=== PATIENT | male | born 1960 | race Caucasian/White ===

== ENCOUNTER 2020-04-28 13:49 | Emergency (ER) | payer BC ==
[~2020-04-28] VITALS: Ht 180.3 cm; Wt 85.5 kg
[2020-04-28 14:37] LABS: BASO # 0.2 x10^3/uL (0.0-0.2); BASO % 1 % (0-3); EOS # 0.2 x10^3/uL (0.0-0.7); EOS % 1 % (0-3); HEMATOCRIT 45.9 % (39.0-53.0); HEMOGLOBIN 15.3 g/dL (13.0-17.5); LYMPH # 2.2 x10^3/uL (1.0-4.8); LYMPH % 12 % (24-48); MEAN CORPUSCULAR HEMOGLOBIN 30 pg (25-35); MEAN CORPUSCULAR HGB CONC 33 g/dL (31-37); MEAN CORPUSCULAR VOLUME 89 fL (79-100); MONO # 1.1 x10^3/uL (0.0-1.1); MONO % 7 % (0-9); NEUT # 13.7 x10^3/uL (1.8-7.7); NEUT % 79 % (31-73); PLATELET COUNT 397 x10^3/uL (140-400); RED BLOOD COUNT 5.14 x10^6/uL (4.30-5.70); WHITE BLOOD COUNT 17.4 x10^3/uL (4.0-11.0)
[2020-04-28 14:46] LABS: CREATININE 1.6 mg/dL (0.7-1.3); POTASSIUM 4.5 mmol/L (3.5-5.1)
[2020-04-28] MEDS: TAMSULOSIN 0.4 MG CAP.ER.24H. PO ONE (14:47)
[2020-04-28] MEDS: ONDANSETRON PF 4 MG/2 ML VIAL. IVP ONE (14:47)
[2020-04-28] MEDS: MORPHINE SULFATE 10 MG/ML VIAL. IV ONE (14:47)
[2020-04-28] MEDS: IV NORMAL SALINE 1000ML BAG 1,000 ML IV ONE (14:47)
[2020-04-28 14:57] LABS: ALBUMIN 2.9 g/dL (3.4-5.0); ALBUMIN/GLOBULIN RATIO 0.5 (1.0-1.7); TOTAL BILIRUBIN 0.6 mg/dL (0.2-1.0); TOTAL PROTEIN 8.6 g/dL (6.4-8.2)
[2020-04-28 14:57] LABS: BILIRUBIN,URINE NEGATIVE (NEG); CLARITY,URINE TURBID; COLOR,URINE YELLOW; NITRITE,URINE POSITIVE (NEG); PROTEIN,URINE >=300 mg/dL (NEG-TRACE); UROBILINOGEN,URINE 0.2 mg/dL (0.2 mg/dL)
[2020-04-28 14:59] LABS: % BASOS 2 % (0-3); % LYMPHS 20 % (24-48); % MONOS 6 % (0-10); % SEGS 72 % (35-66); PLT ESTIMATE ADEQUATE (ADEQUATE)
[2020-04-28 15:02] LABS: BACTERIA,URINE MANY /HPF (0-FEW); WBC,URINE >40 /HPF (0-4)
[2020-04-28 15:03] LABS: BARBITURATES NEG (NEG); BENZODIAZEPINES NEG (NEG); CANNABINOIDS NEG (NEG); COCAINE NEG (NEG); METHADONE NEG (NEG); OPIATES NEG (NEG); PHENCYCLIDINE NEG (NEG)
[2020-04-28 15:06] LABS: AMPHETAMINE/METHAMPHETAMINE POS (NEG)
[2020-04-28] MEDS: cefTRIAXone IV Push 1 GM VIAL. IVP ONE (15:44)
--- NOTE | 2020-04-28 15:53 | RAD ---
EXAM: CT Abdomen and Pelvis without IV contrast INDICATION: Reason: right flank pain hx of kidney stones / Spl. Instructions: / History: TECHNIQUE: Multi-detector row CT images were acquired from the lung bases through the abdomen and pel vis without the use of IV contrast. Sagittal and coronal images were acquired from the transaxial cuong a. All CT scans performed at this facility utilize dose optimization techniques as appropriate to the exam, including the following: Automated exposure control and adjustment of the mA and/or KV accordi ng to patient size (this includes techniques or standardized protocols for targeted exams where dose is indication/reason for exam). ORAL CONTRAST: None COMPARISON: Noncontrast abdomen pelvis CT of 11/04/2018 FINDINGS: The absence of IV contrast limits evaluation of soft tissue pathology. LOWER CHEST: Mild bibasilar atelectasis. LIVER: Unremarkable BILIARY SYSTEM: Mildly distended gallbladder with layering density suggestive of sludge or tiny galls tones. Bile ducts are not dilated. PANCREAS: Unremarkable SPLEEN: Unremarkable ADRENALS: Unremarkable KIDNEYS & URETERS: The left kidney shows interval resolution of hydronephrosis and hydroureter with interval passage of the distal left ureteral stone. The right kidney however shows slight interval increase in perirenal soft tissue stranding and edema of the right renal sinus fat. No definite right hydronephrosis is identified. Right nephrolithiasis i s noted with the largest stone measuring 5 mm at the inferior pole. A second 2 mm stone in the midpol e is unchanged. Previously evident additional stones at the superior pole right kidney have since pas sed. No ureteral stones are identified. BLADDER: Gas in the urinary bladder lumen remains present and there is mild diffuse wall thickening in the und istended urinary bladder that is nonspecific but could reflect cystitis in the appropriate clinical c ontext. Mural calcifications along the dorsal aspect of the urinary bladder remain present. REPRODUCTIVE ORGANS: Unremarkable GASTROINTESTINAL: Bowel shows no evidence of obstruction or acute inflammation. There are extensive c olonic diverticuli in the left-sided colon without CT findings suspicious for acute diverticulitis. T he appendix is normal. MESENTERY/PERITONEUM/RETROPERITONEUM: Unremarkable VASCULAR: Unremarkable LYMPH NODES: No adenopathy OSSEOUS & SOFT TISSUES: Bones are demineralized and show surgical changes from previous posterior de compression in the lower lumbar spine. There is suggestion of moderate central canal stenosis at L3-L 4, just above posterior surgical hardware fusion. S1 is a transitional vertebra that is is partially lumbarized on the right. IMPRESSION: CT findings suggesting possible acute cystitis with gas in the urinary bladder lumen and slightly gre ater perirenal soft tissue stranding on the right compared with the previous examination. Findings of obstructive uropathy in the left urinary tract have since resolved. Cannot exclude pyelonephritis. C orrelate clinically. Electronically signed by: Tanisha Snyder MD (04/28/2020 3:51 PM) [id number]
--- NOTE | 2020-04-28 17:29 | PHYS DOC ---
Past Medical History Past Medical History: Diabetes-Type II, Hypertension, Kidney Stone Past Surgical History: No Surgical History Smoking Status: Current Every Day Smoker Alcohol Use: Occasionally Drug Use: None General Adult EDM: Chief Complaint: ABDOMINAL PAIN HPI: HPI: Patient is a 60 year old male with history of hypertension, diabetes type 2, kidney infections, kidney stones, who presents to the ED today complaining of mild to moderate intermittent right flank pain, symptoms have been going on for 3 days. Patient denies any nausea, vomiting, fever. Denies anything specifically exacerbating or relieving his symptoms. Denies any hematuria. Review of Systems: Review of Systems: Constitutional: Denies fever or chills. [] Eyes: Denies change in visual acuity. [] HENT: Denies nasal congestion or sore throat. [] Respiratory: Denies cough or shortness of breath. [] Cardiovascular: Denies chest pain or edema. [] GI: Denies abdominal pain, nausea, vomiting, bloody stools or diarrhea. [] : Reports right flank pain, dysuria Musculoskeletal: Denies back pain or joint pain. [] Integument: Denies rash. [] Neurologic: Denies headache, focal weakness or sensory changes. [] Psychiatric: Denies depression or anxiety. [] Heart Score: Risk Factors: Risk Factors: DM, Current or recent (<one month) smoker, HTN, HLP, family history of CAD, obesity. Risk Scores: Score 0 - 3: 2.5% MACE over next 6 weeks - Discharge Home Score 4 - 6: 20.3% MACE over next 6 weeks - Admit for Clinical Observation Score 7 - 10: 72.7% MACE over next 6 weeks - Early Invasive Strategies Current Medications: Current Medications Medications (Trade) Dose Ordered Sig/Jena Start Time Stop Time Status Last Admin Dose Admin Ceftriaxone Sodium (Rocephin) 1 gm 1X ONCE 04/28/20 15:30 04/28/20 15:31 DC 04/28/20 15:44 1 GM Morphine Sulfate (Morphine Sulfate) 5 mg 1X ONCE 04/28/20 14:30 04/28/20 14:31 DC 04/28/20 14:47 5 MG Ondansetron HCl (Zofran) 4 mg 1X ONCE 04/28/20 14:30 04/28/20 14:31 DC 04/28/20 14:47 4 MG Sodium Chloride 1,000 ml @ 1,000 mls/hr 1X ONCE 04/28/20 14:30 04/28/20 15:29 DC 04/28/20 14:47 1,000 MLS/HR Tamsulosin HCl (Flomax) 0.4 mg 1X ONCE 04/28/20 14:30 04/28/20 14:31 DC 04/28/20 14:47 0.4 MG Allergies: Allergies: Allergies Coded Allergies Type Severity Reaction Last Updated Verified No Known Drug Allergies 11/04/18 No Physical Exam: PE: Constitutional: Well developed, well nourished, no acute distress, non-toxic darron earance. [] HENT: Normocephalic, atraumatic, bilateral external ears normal, oropharynx moist, no oral exudates, nose normal. [] Eyes: PERRLA, EOMI, conjunctiva normal, no discharge. [] Neck: Normal range of motion, no tenderness, supple, no stridor. [] Cardiovascular:Heart rate regular rhythm, no murmur [] Lungs & Thorax: Bilateral breath sounds clear to auscultation [] Abdomen: Bowel sounds normal, soft, no tenderness, no masses, no pulsatile masses. [] Skin: Warm, dry, no erythema, no rash. [] Back: No tenderness, mild right CVA tenderness. [] Extremities: No tenderness, no cyanosis, no clubbing, ROM intact, no edema. [] Neurologic: Alert and oriented X 3, normal motor function, normal sensory function, no focal deficits noted. [] Psychologic: Affect normal, judgement normal, mood normal. [] Current Patient Data: Labs: Laboratory Tests Test 04/28/20 14:28 04/28/20 14:49 White Blood Count 17.4 x10^3/uL (4.0-11.0) H Red Blood Count 5.14 x10^6/uL (4.30-5.70) Hemoglobin 15.3 g/dL (13.0-17.5) Hematocrit 45.9 % (39.0-53.0) Mean Corpuscular Volume 89 fL (79-100) Mean Corpuscular Hemoglobin 30 pg (25-35) Mean Corpuscular Hemoglobin Concent 33 g/dL (31-37) Red Cell Distribution Width 14.0 % (11.5-14.5) Platelet Count 397 x10^3/uL (140-400) Neutrophils (%) (Auto) 79 % (31-73) H Lymphocytes (%) (Auto) 12 % (24-48) L Monocytes (%) (Auto) 7 % (0-9) Eosinophils (%) (Auto) 1 % (0-3) Basophils (%) (Auto) 1 % (0-3) Neutrophils # (Auto) 13.7 x10^3/uL (1.8-7.7) H Lymphocytes # (Auto) 2.2 x10^3/uL (1.0-4.8) Monocytes # (Auto) 1.1 x10^3/uL (0.0-1.1) Eosinophils # (Auto) 0.2 x10^3/uL (0.0-0.7) Basophils # (Auto) 0.2 x10^3/uL (0.0-0.2) Segmented Neutrophils % 72 % (35-66) H Lymphocytes % 20 % (24-48) L Monocytes % 6 % (0-10) Basophils % 2 % (0-3) Platelet Estimate Adequate (ADEQUATE) Sodium Level 131 mmol/L (136-145) L Potassium Level 4.5 mmol/L (3.5-5.1) Chloride Level 94 mmol/L (98-107) L Carbon Dioxide Level 27 mmol/L (21-32) Anion Gap 10 (6-14) Blood Urea Nitrogen 19 mg/dL (8-26) Creatinine 1.6 mg/dL (0.7-1.3) H Estimated GFR (Cockcroft-Gault) 44.0 BUN/Creatinine Ratio 12 (6-20) Glucose Level 375 mg/dL (70-99) H Calcium Level 10.0 mg/dL (8.5-10.1) Magnesium Level 2.0 mg/dL (1.8-2.4) Total Bilirubin 0.6 mg/dL (0.2-1.0) Aspartate Amino Transferase (AST) 16 U/L (15-37) Alanine Aminotransferase (ALT) 21 U/L (16-63) Alkaline Phosphatase 130 U/L (46-116) H Total Protein 8.6 g/dL (6.4-8.2) H Albumin 2.9 g/dL (3.4-5.0) L Albumin/Globulin Ratio 0.5 (1.0-1.7) L Ethyl Alcohol Level < 10 mg/dL (0-10) Urine Collection Type Unknown Urine Color Yellow Urine Clarity Turbid Urine pH 6.0 (<5.0-8.0) Urine Specific [place] >=1.030 (1.000-1.030) Urine Protein >=300 mg/dL (NEG-TRACE) Urine Glucose (UA) >=1000 mg/dL (NEG) Urine Ketones (Stick) Negative mg/dL (NEG) Urine Blood Small (NEG) Urine Nitrite Positive (NEG) Urine Bilirubin Negative (NEG) Urine Urobilinogen Dipstick 0.2 mg/dL (0.2 mg/dL) Urine Leukocyte Esterase Moderate (NEG) Urine RBC 1-2 /HPF (0-2) Urine WBC >40 /HPF (0-4) Urine Bacteria Many /HPF (0-FEW) Urine Opiates Screen Neg (NEG) Urine Methadone Screen Neg (NEG) Urine Barbiturates Neg (NEG) Urine Phencyclidine Screen Neg (NEG) Urine Amphetamine/Methamphetamine Pos (NEG) Urine Benzodiazepines Screen Neg (NEG) Urine Cocaine Screen Neg (NEG) Urine Cannabinoids Screen Neg (NEG) Urine Ethyl Alcohol Neg (NEG) Laboratory Tests 04/28/20 14:28 Laboratory Tests 04/28/20 14:28 Vital Signs: Vital Signs Date Time Temp Pulse Resp B/P (MAP) Pulse Ox O2 Delivery O2 Flow Rate FiO2 04/28/20 14:47 20 04/28/20 14:32 98.4 126 162/100 (120) 96 Room Air 98.4 EKG: EKG: [] Radiology/Procedures: Radiology/Procedures: []PROCEDURE: CT ABDOMEN PELVIS WO CONTRAST EXAM: CT Abdomen and Pelvis without IV contrast INDICATION: Reason: right flank pain hx of kidney stones / Spl. Instructions: / History: TECHNIQUE: Multi-detector row CT images were acquired from the lung bases through the abdomen and pelvis without the use of IV contrast. Sagittal and coronal images were acquired from the transaxial data. All CT scans performed at this facility utilize dose optimization techniques as appropriate to the exam, including the following: Automated exposure control and adjustment of the mA and/or KV according to patient size (this includes techniques or standardized protocols for targeted exams where dose is indication/reason for exam). ORAL CONTRAST: None COMPARISON: Noncontrast abdomen pelvis CT of 11/04/2018 FINDINGS: The absence of IV contrast limits evaluation of soft tissue pathology. LOWER CHEST: Mild bibasilar atelectasis. LIVER: Unremarkable BILIARY SYSTEM: Mildly distended gallbladder with layering density suggestive of sludge or tiny gallstones. Bile ducts are not dilated. PANCREAS: Unremarkable SPLEEN: Unremarkable ADRENALS: Unremarkable KIDNEYS & URETERS: The left kidney shows interval resolution of hydronephrosis and hydroureter with interval passage of the distal left ureteral stone. The right kidney however shows slight interval increase in perirenal soft tissue stranding and edema of the right renal sinus fat. No definite right hydronephrosis is identified. Right nephrolithiasis is noted with the largest stone measuring 5 mm at the inferior pole. A second 2 mm stone in the midpole is unchanged. Previously evident additional stones at the superior pole right kidney have since passed. No ureteral stones are identified. BLADDER: Gas in the urinary bladder lumen remains present and there is mild diffuse wall thickening in the undistended urinary bladder that is nonspecific but could reflect cystitis in the appropriate clinical context. Mural calcifications along the dorsal aspect of the urinary bladder remain present. REPRODUCTIVE ORGANS: Unremarkable GASTROINTESTINAL: Bowel shows no evidence of obstruction or acute inflammation. There are extensive colonic diverticuli in the left-sided colon without CT f indings suspicious for acute diverticulitis. The appendix is normal. MESENTERY/PERITONEUM/RETROPERITONEUM: Unremarkable VASCULAR: Unremarkable LYMPH NODES: No adenopathy OSSEOUS & SOFT TISSUES: Bones are demineralized and show surgical changes from previous posterior decompression in the lower lumbar spine. There is suggestion of moderate central canal stenosis at L3-L4, just above posterior surgical hardware fusion. S1 is a transitional vertebra that is is partially lumbarized on the right. IMPRESSION: CT findings suggesting possible acute cystitis with gas in the urinary bladder lumen and slightly greater perirenal soft tissue stranding on the right compared with the previous examination. Findings of obstructive uropathy in the left urinary tract have since resolved. Cannot exclude pyelonephritis. Correlate clinically. Electronically signed by: Roldan Snyder MD (04/28/2020 3:51 PM) [id number] DICTATED and SIGNED BY: ROLDAN SNYDER MD DATE: 04/28/20 [id number] 0 Course & Med Decision Making: Course & Med Decision Making Pertinent Labs and Imaging studies reviewed. (See chart for details) This is a 60-year-old male patient presenting to the ED today with right flank pain, symptoms for 3 days. Also complaining of dysuria. Urine positive for infection. CBC with a WBC of 17.4 and a left shift, CMP with creatinine of 1.6, BUN is normal, this is patient's baseline. Glucose 375, anion gap is normal. CT of the abdomen and pelvic was positive for acute cystitis, pyelonephritis c ould not be ruled out. Also noted for kidney stones. Vitals noted for tachycardia with heart rate in the 120s to 130s on arrival. Positive for methamphetamine use. After 1 L of IV fluids heart rate has come down to the low 100s. Patient encouraged to consider not using methamphetamines. Patient was given Rocephin in the ED. I spoke to Dr. Osborne who recommended we discharge patient on oral antibiotics. Discharged on Cipro. Follow-up with PCP and urologist next week. Instructed to return to the ED at any point symptoms worsen. Regina Disclaimer: Regina Disclaimer: This electronic medical record was generated, in whole or in part, using a voice recognition dictation system. Departure Departure Impression: Primary Impression: Nephrolithiasis Additional Impression: Pyelonephritis Disposition: 01 DC HOME SELF CARE/HOMELESS Condition: STABLE Referrals: UNKNOWN PCP NAME (PCP) follow up with your doctor next week Patient Instructions: Pyelonephritis, Adult, [id number] Additional Instructions: You were evaluated in the emergency room and noted to have a kidney infection. Take the prescribed antibiotics until completed. Push fluids. Follow-up with your doctor in 1 week. Scripts Ciprofloxacin Hcl (CIPRO) 500 Mg Tablet 1 TAB PO BID for 10 Days, #20 TAB 0 Refills Prov: MANNY CARTWRIGHT APRN 04/28/20 MANNY CARTWRIGHT APRN Apr 28, 2020 17:29
[2020-04-28 17:34] VITALS: BP 147/85
[2020-04-28] MEDS ORDERED: CIPR500T94 PO (17:35)
== END 2020-04-28 17:54 | disposition home or self-care (01) ==
LOC: ER 13:49
DX: N10 Acute pyelonephritis (principal); N20.0 Calculus of kidney; R30.0 Dysuria; E11.9 Type 2 diabetes mellitus without complications; I10 Essential (primary) hypertension; F17.200 Nicotine dependence, unspecified, uncomplicated
CPT/HCPCS: 36415; 74176; 80053; 80307; 81001; 83735; 85007; 85025; 87086; 96361; 96374; 96375; 99284; G0480; J0696; J2270; J2405; J7030

== ENCOUNTER 2020-07-15 19:21 | Emergency (ER) | payer BC ==
[~2020-07-15] VITALS: Ht 180.3 cm; Wt 102.2 kg
[~2020-07-15 19:21] MED LIST: CIPR500T94 PO
--- NOTE | 2020-07-15 19:42 | ED.ADGEN ---
Past Medical History Past Medical History: Diabetes-Type II, Hypertension, Kidney Stone Past Surgical History: No Surgical History Smoking Status: Current Every Day Smoker Alcohol Use: Occasionally Drug Use: None General Adult EDM: Chief Complaint: FLANK PAIN HPI: HPI: Patient is a 60 year old male coming in for right flank pain for the past 2 days. Says the pain is intermittent sharp. Has noticed some blood in his urine but denies any dysuria. The pain is in his right back and is similar to his previous kidney stones on the left and had to be removed. Patient states he otherwise has been well, denies any vomiting or fevers. States he does have a history urinary tract infections. Review of Systems: Review of Systems: All other systems within normal limits except for as noted in the HPI Current Medications: Current Medications Medications (Trade) Dose Ordered Sig/Jena Start Time Stop Time Status Last Admin Dose Admin Ceftriaxone Sodium (Rocephin) 1 gm 1X ONCE 07/15/20 20:30 07/15/20 20:31 DC 07/15/20 21:33 1 GM Fentanyl Citrate (Fentanyl 2ml Vial) 75 mcg 1X ONCE 07/15/20 23:00 07/15/20 23:01 Sodium Chloride 1,000 ml @ 100 mls/hr 1X ONCE 07/15/20 22:30 07/16/20 08:29 07/15/20 22:02 100 MLS/HR Allergies: Allergies: Allergies Coded Allergies Type Severity Reaction Last Updated Verified No Known Drug Allergies 11/04/18 No Physical Exam: PE: Constitutional: Well developed, well nourished, no acute distress, non-toxic appearance. [] HENT: Normocephalic, atraumatic, bilateral external ears normal, nose normal. [] Eyes: PERRLA, conjunctiva normal, no discharge. [] Neck: No rigidity, supple, no stridor. [] Cardiovascular: Regular rate and rhythm, brisk cap refill. Symmetric radial and DP pulses [] Lungs & Thorax: Non labored symmetric respirations, no tachypnea or respiratory distress [] Abdomen: Soft, nondistended, no tenderness to palpation, no pulsatile masses. Skin: Warm, dry, no erythema, no rash. [] Back: Unremarkable, right CVA tenderness Extremities: No deformities, range of motion grossly intact, no lower extremity edema [] Neurologic: Alert and oriented X 3, no focal deficits noted. [] Psychologic: Affect normal, judgement normal, mood normal. [] Current Patient Data: Labs: Laboratory Tests Test 07/15/20 19:07 07/15/20 19:51 07/15/20 20:43 Lactic Acid Level 2.9 mmol/L (0.4-2.0) H White Blood Count 15.2 x10^3/uL (4.0-11.0) H Red Blood Count 5.49 x10^6/uL (4.30-5.70) Hemoglobin 16.6 g/dL (13.0-17.5) Hematocrit 49.8 % (39.0-53.0) Mean Corpuscular Volume 91 fL (79-100) Mean Corpuscular Hemoglobin 30 pg (25-35) Mean Corpuscular Hemoglobin Concent 33 g/dL (31-37) Red Cell Distribution Width 14.9 % (11.5-14.5) H Platelet Count 90 x10^3/uL (140-400) L Neutrophils (%) (Auto) 90 % (31-73) H Lymphocytes (%) (Auto) 3 % (24-48) L Monocytes (%) (Auto) 6 % (0-9) Eosinophils (%) (Auto) 0 % (0-3) Basophils (%) (Auto) 1 % (0-3) Neutrophils # (Auto) 13.7 x10^3/uL (1.8-7.7) H Lymphocytes # (Auto) 0.5 x10^3/uL (1.0-4.8) L Monocytes # (Auto) 0.9 x10^3/uL (0.0-1.1) Eosinophils # (Auto) 0.0 x10^3/uL (0.0-0.7) Basophils # (Auto) 0.1 x10^3/uL (0.0-0.2) Segmented Neutrophils % 85 % (35-66) H Band Neutrophils % 7 % (0-9) Lymphocytes % 5 % (24-48) L Monocytes % 2 % (0-10) Eosinophils % 1 % (0-5) Platelet Estimate Adequate (ADEQUATE) Sodium Level 128 mmol/L (136-145) L Potassium Level 5.2 mmol/L (3.5-5.1) H Chloride Level 93 mmol/L (98-107) L Carbon Dioxide Level 25 mmol/L (21-32) Anion Gap 10 (6-14) Blood Urea Nitrogen 54 mg/dL (8-26) H Creatinine 5.3 mg/dL (0.7-1.3) H Estimated GFR (Cockcroft-Gault) 11.0 BUN/Creatinine Ratio 10 (6-20) Glucose Level 308 mg/dL (70-99) H Calcium Level 9.5 mg/dL (8.5-10.1) Total Bilirubin 1.4 mg/dL (0.2-1.0) H Aspartate Amino Transferase (AST) 26 U/L (15-37) Alanine Aminotransferase (ALT) 30 U/L (16-63) Alkaline Phosphatase 94 U/L (46-116) Troponin I Quantitative 0.022 ng/mL (0.000-0.055) DP-Ooz-F-Type Natriuretic Peptide 27330 pg/mL (0-124) H Total Protein 8.1 g/dL (6.4-8.2) Albumin 2.7 g/dL (3.4-5.0) L Albumin/Globulin Ratio 0.5 (1.0-1.7) L Lipase 40 U/L (73-393) L Urine Collection Type Void Urine Color [place] Urine Clarity Turbid Urine pH 6.0 (<5.0-8.0) Urine Specific [place] 1.025 (1.000-1.030) Urine Protein >=300 mg/dL (NEG-TRACE) Urine Glucose (UA) 250 mg/dL (NEG) Urine Ketones (Stick) Negative mg/dL (NEG) Urine Blood Large (NEG) Urine Nitrite Positive (NEG) Urine Bilirubin Negative (NEG) Urine Urobilinogen Dipstick 0.2 mg/dL (0.2 mg/dL) Urine Leukocyte Esterase Large (NEG) Urine RBC 6-10 /HPF (0-2) Urine WBC >40 /HPF (0-4) Urine Squamous Epithelial Cells Few /LPF Urine Bacteria Few /HPF (0-FEW) Urine Hyaline Casts Few /HPF Laboratory Tests 07/15/20 19:51 Laboratory Tests 07/15/20 19:51 Vital Signs: Vital Signs Date Time Temp Pulse Resp B/P (MAP) Pulse Ox O2 Delivery O2 Flow Rate FiO2 07/15/20 21:07 124 36 128/81 (97) 94 Nasal Cannula 2.0 07/15/20 19:34 98.5 98.5 EKG: EKG: Sinus tachycardia, heart rate 112 bpm, left axis deviation. Left anterior fascicular block, right bundle branch block, bifascicular block. No significant change when compared to electrocardiogram 04-12-18. [] Heart Score: C/O Chest Pain: No Risk Factors: Risk Factors: DM, Current or recent (<one month) smoker, HTN, HLP, family history of CAD, obesity. Risk Scores: Score 0 - 3: 2.5% MACE over next 6 weeks - Discharge Home Score 4 - 6: 20.3% MACE over next 6 weeks - Admit for Clinical Observation Score 7 - 10: 72.7% MACE over next 6 weeks - Early Invasive Strategies Radiology/Procedures: Radiology/Procedures: CT ABDOMEN+PELVIS WO History: Reason: right flank pain, stone protocol / Spl. Instructions: / History: Technique: Noncontrast examination of the abdomen and pelvis. Coronal and sagittal reconstructions were performed. Exposure: One or more of the following individualized dose reduction techniques were utilized for this examination: 1. Automated exposure control 2. Adjustment of the mA and/or kV according to patient size 3. Use of iterative reconstruction technique. Comparison: April 28, 2020 Findings: Lower chest: Bilateral lower lobe linear opacities as well as linear opacities within the lingula and right middle lobe. Tiny right pleural effusion. Calcified pulmonary nodules, likely prior granulomatous disease. Asymmetric left gynecomastia, unchanged. Abdomen and pelvis: Hepatic steatosis. The spleen, adrenal glands, and pancreas are remarkable. Cholelithiasis. No biliary ductal dilatation. Mild right hydronephrosis. Right perinephric and periureteral fat stranding. 4 mm right distal ureteral calculus (series 2 image 202). Numerous calculi within the urinary bladder. Gas within the urinary bladder. Urinary bladder wall thickening. Bilateral nonobstructing intrarenal calculi. Left renal atrophy, unchanged. No left hydronephrosis. Colonic diverticulosis. Normal appendix. No evidence of bowel obstruction. No pathologic lymphadenopathy. No ascites. Atheromatous plaque throughout the nonaneurysmal abdominal aorta and branch vessels. Bones: Postoperative changes lower lumbar spine. Multilevel thoracolumbar spondy losis. Calcified disc extrusion T9-T10 contributing to moderate canal narrowing. Multilevel neuroforaminal narrowing. Additional poorly characterize canal narrowing within the lumbar spine. Impression: 1. 4 mm obstructing right distal ureteral calculus contributing to mild right hydronephrosis and perinephric/perineural fat stranding. 2. Numerous urinary bladder calculi. 3. Urinary bladder wall thickening. Correlate for cystitis. 4. Foci of gas within the urinary bladder. Recommend correlation for recent instrumentation. 5. Left renal atrophy, unchanged. 6. Bilateral nonobstructing intrarenal calculi. 7. Tiny right pleural effusion. 8. Bibasilar predominantly linear opacities, likely atelectasis. 9. Hepatic steatosis.[] Course & Med Decision Making: Course & Med Decision Making Pertinent Labs and Imaging studies reviewed. (See chart for details) Infected urine nephrolithiasis with obstruction and acute renal failure. Discussed patient's plan of care with him and , he will need urology consult which is not available at this facility. Patient and requesting transfer to [facility]. Discussed with the transfer line and images clotted. Accepting physician Dr. Rodriguez [] Regina Disclaimer: Regina Disclaimer: This electronic medical record was generated, in whole or in part, using a voice recognition dictation system. Departure Departure Impression: Primary Impression: Emphysematous cystitis Additional Impressions: Pyelonephritis Tachycardia CHF (congestive heart failure) Obstruction of right ureteropelvic junction due to stone Disposition: 02 DC/TRF OTHER SHORT TERM HOS Condition: GUARDED Referrals: UNKNOWN PCP NAME (PCP) Problem Qualifiers EDDIE DANIELLE MD Jul 15, 2020 19:42
[2020-07-15 20:00] LABS: BASO # 0.1 x10^3/uL (0.0-0.2); BASO % 1 % (0-3); EOS % 0 % (0-3); HEMATOCRIT 49.8 % (39.0-53.0); HEMOGLOBIN 16.6 g/dL (13.0-17.5); LYMPH # 0.5 x10^3/uL (1.0-4.8); LYMPH % 3 % (24-48); MEAN CORPUSCULAR HEMOGLOBIN 30 pg (25-35); MEAN CORPUSCULAR HGB CONC 33 g/dL (31-37); MEAN CORPUSCULAR VOLUME 91 fL (79-100); MONO # 0.9 x10^3/uL (0.0-1.1); MONO % 6 % (0-9); NEUT # 13.7 x10^3/uL (1.8-7.7); NEUT % 90 % (31-73); PLATELET COUNT 90 x10^3/uL (140-400); RED BLOOD COUNT 5.49 x10^6/uL (4.30-5.70); RED CELL DISTRIBUTION WIDTH 14.9 % (11.5-14.5); WHITE BLOOD COUNT 15.2 x10^3/uL (4.0-11.0)
[2020-07-15 20:09] LABS: CALCIUM 9.5 mg/dL (8.5-10.1); CREATININE 5.3 mg/dL (0.7-1.3); POTASSIUM 5.2 mmol/L (3.5-5.1)
[2020-07-15] MEDS: fentaNYL PF VIAL 100 MCG/2 ML VIAL IVP ONE ×2 (20:14→22:47)
[2020-07-15 20:15] LABS: ALBUMIN 2.7 g/dL (3.4-5.0); ALBUMIN/GLOBULIN RATIO 0.5 (1.0-1.7); TOTAL BILIRUBIN 1.4 mg/dL (0.2-1.0); TOTAL PROTEIN 8.1 g/dL (6.4-8.2)
[2020-07-15] MEDS: IV NORMAL SALINE 500ML BAG 500 ML IV ONE (20:16)
--- NOTE | 2020-07-15 20:21 | RAD ---
CT ABDOMEN+PELVIS WO History: Reason: right flank pain, stone protocol / Spl. Instructions: / History: Technique: Noncontrast examination of the abdomen and pelvis. Coronal and sagittal reconstructions we re performed. Exposure: One or more of the following individualized dose reduction techniques were utilized for thi s examination: 1. Automated exposure control 2. Adjustment of the mA and/or kV according to patient size 3. Use of iterative reconstruction technique. Comparison: April 28, 2020 Findings: Lower chest: Bilateral lower lobe linear opacities as well as linear opacities within the lingula and right middle lobe. Tiny right pleural effusion. Calcified pulmonary nodules, likely prior granulomat ous disease. Asymmetric left gynecomastia, unchanged. Abdomen and pelvis: Hepatic steatosis. The spleen, adrenal glands, and pancreas are remarkable. Yara lithiasis. No biliary ductal dilatation. Mild right hydronephrosis. Right perinephric and periureteral fat stranding. 4 mm right distal ureter al calculus (series 2 image 202). Numerous calculi within the urinary bladder. Gas within the urinary bladder. Urinary bladder wall thickening. Bilateral nonobstructing intrarenal calculi. Left renal at rophy, unchanged. No left hydronephrosis. Colonic diverticulosis. Normal appendix. No evidence of bowel obstruction. No pathologic lymphadenopa thy. No ascites. Atheromatous plaque throughout the nonaneurysmal abdominal aorta and branch vessels. Bones: Postoperative changes lower lumbar spine. Multilevel thoracolumbar spondylosis. Calcified disc extrusion T9-T10 contributing to moderate canal narrowing. Multilevel neuroforaminal narrowing. Cayden tional poorly characterize canal narrowing within the lumbar spine. Impression: 1. 4 mm obstructing right distal ureteral calculus contributing to mild right hydronephrosis and per inephric/perineural fat stranding. 2. Numerous urinary bladder calculi. 3. Urinary bladder wall thickening. Correlate for cystitis. 4. Foci of gas within the urinary bladder. Recommend correlation for recent instrumentation. 5. Left renal atrophy, unchanged. 6. Bilateral nonobstructing intrarenal calculi. 7. Tiny right pleural effusion. 8. Bibasilar predominantly linear opacities, likely atelectasis. 9. Hepatic steatosis. Electronically signed by: Aly Fairbanks DO (07/15/2020 8:19 PM) [facility] [place]
[2020-07-15 20:22] LABS: % BANDS 7 % (0-9); % EOS 1 % (0-5); % LYMPHS 5 % (24-48); % MONOS 2 % (0-10); % SEGS 85 % (35-66)
[2020-07-15 20:23] LABS: PLT ESTIMATE ADEQUATE (ADEQUATE)
--- NOTE | 2020-07-15 20:36 | EKG ---
[facility] [address] [place] [address] Test Date: 2020-07-15 Test Time: 20:10:24 Pat Name: ANAM KHAN Department: Room: Gender: M Aerobics Instructor: : 1960 Requested By: EDDIE DANIELLE Order Number: [id number] Reading MD: Measurements Intervals [place] Rate: 125 P: -90 AL: 110 QRS: -62 QRSD: 156 T: 17 QT: 316 QTc: 458 Interpretive Statements SINUS TACHYCARDIA LEFT ATRIAL ABNORMALITY ABNORMAL LEFT AXIS DEVIATION LEFT ANTERIOR FASCICULAR BLOCK RIGHT BUNDLE BRANCH BLOCK BIFASCICULAR BLOCK RVH WITH REPOLARIZATION ABNORMALITY ABNORMAL ECG RI6.01 No previous ECG available for comparison
[2020-07-15 20:56] LABS: BILIRUBIN,URINE NEGATIVE (NEG); CLARITY,URINE TURBID; COLOR,URINE AMBER; NITRITE,URINE POSITIVE (NEG); PROTEIN,URINE >=300 mg/dL (NEG-TRACE); UROBILINOGEN,URINE 0.2 mg/dL (0.2 mg/dL)
[2020-07-15 21:07] LABS: BACTERIA,URINE FEW /HPF (0-FEW); WBC,URINE >40 /HPF (0-4)
[2020-07-15 21:08] LABS: HYALINE CASTS, URINE FEW /HPF
[2020-07-15] MEDS: cefTRIAXone IV Push 1 GM VIAL. IVP ONE (21:33)
[2020-07-15] MEDS: IV NORMAL SALINE 1000ML BAG 1,000 ML IV ONE (22:02)
[2020-07-15 23:53] VITALS: BP 124/79
--- NOTE | 2020-07-16 09:28 | VNOTE ---
CALL BACK NOTE CALL BACK Microbiology 07/15/20 Blood Culture - Final, Complete I evaluated patient's blood culture results. I reviewed the chart. Patient was transferred to [facility] yesterday evening for concern of sepsis with an obstructing kidney stone. No further intervention is needed at this time. SEEMA GALO MD Jul 16, 2020 09:28
== END 2020-07-16 00:06 | disposition short-term general hospital (02) ==
LOC: ER 19:21
DX: N30.81 Other cystitis with hematuria (principal); N12 Tubulo-interstitial nephritis, not specified as acute or chronic; N13.6 Pyonephrosis; R00.0 Tachycardia, unspecified; I11.0 Hypertensive heart disease with heart failure; I50.9 Heart failure, unspecified; E11.9 Type 2 diabetes mellitus without complications; F17.200 Nicotine dependence, unspecified, uncomplicated
CPT/HCPCS: 36415; 74176; 80053; 81001; 83605; 83690; 83880; 84484; 85007; 85025; 87040; 87086; 87205; 93005; 96361; 96374; 96375; 96376; 99285; J0696; J3010; J7030; J7040

== ENCOUNTER 2020-09-15 11:37 | Day surgery (SDC) | payer BC ==
[~2020-09-15] VITALS: Ht 177.8 cm; Wt 72.6 kg
[~2020-09-15 11:37] MED LIST changes: +APIX5TAB PO; +ATOR80TA72 PO; +CIPROFLOXACIN 0.3% OPHTH SOLUTION 5ML BOTTLE. OD ONE; +INSU100I13 SQ; +IV RINGERS,LACTATED 1000ML 1,000 ML IV SCH; +LIDOCAINE 2% JELLY 6ML IN APPLICATOR. OD ONE; +METO-313 PO; +PROPARACAINE 0.5% OPHTH SOLUTION 15ML BOTTLE. OD ONE; +SPIR25TA5 PO
[2020-09-15] MEDS ORDERED: BALANCED SALT IRRIG OPHTH SOLN 15 ML BOTTLE. ONE (11:40)
[2020-09-15] MEDS ORDERED: NEO/POLYMYX/DEXAMETH OPHTH OINTMENT 3.5GM TUBE. ONE (11:40)
[2020-09-15] MEDS ORDERED: CHONDROIT-SOD-HYALURONATE KIT. ONE ×2 (11:41)
[2020-09-15] MEDS ORDERED: LIDOCAINE 1% PF 2 ML VIAL. ONE (11:41)
[2020-09-15] MEDS ORDERED: LIDOCAINE 1%/PHENYLEPH 1.5% PF OPHTH 1 ML VIAL. ONE (11:41)
[2020-09-15] MEDS: CYCLOPENTOLATE 1% OPHTH SOLUTION 2ML BOTTLE. OD SCH ×3 (12:10→12:20)
[2020-09-15] MEDS: PHENYLEPHRINE 10% OPHTH SOLUTION 5ML BOTTLE. OD SCH ×3 (12:10→12:20)
[2020-09-15] MEDS ORDERED: INSULIN LISPRO 100 UNIT/ML 3ML VIAL for OP,RR ONLY. SQ PRN (12:15)
[2020-09-15] MEDS ORDERED: INSULIN LISPRO 100 UNIT/ML 3ML VIAL for OP,RR ONLY. SQ ONE (12:20)
[2020-09-15] MEDS ORDERED: METOPROLOL IV PUSH 5 MG/5 ML VIAL. IVP ONE (13:22)
[2020-09-15] MEDS ORDERED: fentaNYL PF VIAL 100 MCG/2 ML VIAL ONE (13:37)
[2020-09-15 14:07] VITALS: BP 131/73
--- NOTE | 2020-09-15 14:29 | EKG ---
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
--- NOTE | 2020-09-15 15:56 | OP ---
DATE OF SURGERY: 09/15/2020 PREOPERATIVE DIAGNOSIS: Senile cataract, left eye. POSTOPERATIVE DIAGNOSIS: Senile cataract, left eye. PROCEDURE: Phacoemulsification with posterior chamber lens implant, left eye. ANESTHESIA: Topical with MAC. DESCRIPTION OF PROCEDURE: The patient was dilated and anesthetic drops were applied in the outpatient department and the [place] balloon cuff was used for about 10 minutes. The patient was then brought to the operating room, positioned on the table. The ____ eye was prepped and draped in the usual sterile manner for an intraocular procedure. A lid speculum was placed between the eyelids. The operating microscope was brought into position. A paracentesis incision was made supratemporally followed by an injection of Viscoat. The 2.4 mm incision was then made temporally and a capsulorrhexis was made without difficulty. The lens nucleus was then hydrodissected and phacoemulsified with the phaco handpiece. The cortex was removed with the I/A handpiece. Provisc was used to insufflate the bag and a posterior chamber lens was placed in the bag without difficulty. The Provisc was aspirated with the I/A handpiece. The wound was hydrated and the eye pressurized and the wound checked for leaks, there were none. The speculum and drape were removed and Maxitrol ointment was instilled in the conjunctival sac and the eye was shielded. The patient was taken to the recovery room in satisfactory condition. There were no complications. I will see him tomorrow in my office. BRITTANI/DOREEN DR: Steven TID: [id number]
== END 2020-09-15 14:50 | disposition home or self-care (01) ==
LOC: SURG 11:37
PROVIDERS: ATTEND Ophthalmology
DX: E11.36 Type 2 diabetes mellitus with diabetic cataract (principal); H25.89 Other age-related cataract; I10 Essential (primary) hypertension; E78.00 Pure hypercholesterolemia, unspecified; I25.10 Atherosclerotic heart disease of native coronary artery without angina pectoris; F17.210 Nicotine dependence, cigarettes, uncomplicated; Z20.822 Contact with and (suspected) exposure to COVID-19; Z87.440 Personal history of urinary (tract) infections; Z98.890 Other specified postprocedural states; Z79.4 Long term (current) use of insulin; Z79.899 Other long term (current) drug therapy
CPT/HCPCS: 66984; 82962; 87426; 93005; A4930; J0171; J1815; J3010; J3490; V2632

== ENCOUNTER → 2020-11-15 | Outpatient (CLI) | payer BC ==
[~2020-11-15] MED LIST changes: -CIPROFLOXACIN 0.3% OPHTH SOLUTION 5ML BOTTLE. OD ONE; -IV RINGERS,LACTATED 1000ML 1,000 ML IV SCH; -LIDOCAINE 2% JELLY 6ML IN APPLICATOR. OD ONE; -PROPARACAINE 0.5% OPHTH SOLUTION 15ML BOTTLE. OD ONE
== END ==
LOC: LAB 14:11
PROVIDERS: ATTEND Ophthalmology
DX: Z01.812 Encounter for preprocedural laboratory examination (principal); Z20.822 Contact with and (suspected) exposure to COVID-19
CPT/HCPCS: U0003; U0005

== ENCOUNTER 2020-11-17 09:15 | Day surgery (SDC) | payer BC ==
[~2020-11-17] VITALS: Ht 177.8 cm; Wt 72.0 kg
[~2020-11-17 09:15] MED LIST changes: +BALANCED SALT IRRIG OPHTH SOLN 15 ML BOTTLE. ONE; +CHONDROIT-SOD-HYALURONATE KIT. ONE; +CIPROFLOXACIN 0.3% OPHTH SOLUTION 5ML BOTTLE. OS ONE; +IV RINGERS,LACTATED 1000ML 1,000 ML IV SCH; +LIDOCAINE 1%/PHENYLEPH 1.5% PF OPHTH 1 ML VIAL. ONE; +LIDOCAINE 2% JELLY 6ML IN APPLICATOR. OS ONE; +NEO/POLYMYX/DEXAMETH OPHTH OINTMENT 3.5GM TUBE. ONE; +PROPARACAINE 0.5% OPHTH SOLUTION 15ML BOTTLE. OS ONE
[2020-11-17 09:42] VITALS: BP 177/92
[2020-11-17] MEDS: PHENYLEPHRINE 10% OPHTH SOLUTION 5ML BOTTLE. OS SCH ×3 (09:50→10:00)
[2020-11-17] MEDS: CYCLOPENTOLATE 1% OPHTH SOLUTION 2ML BOTTLE. OS SCH ×3 (09:50→10:00)
[2020-11-17] MEDS ORDERED: MIDAZOLAM HCL/PF 2 MG/2 ML VIAL. ONE (11:18)
[2020-11-17 12:30] VITALS: BP 170/94
--- NOTE | 2020-11-17 16:03 | OP ---
DATE OF SURGERY: 11/17/2020 PREOPERATIVE DIAGNOSIS: Senile cataract, left eye. POSTOPERATIVE DIAGNOSIS: Senile cataract, left eye. PROCEDURE: Phacoemulsification with posterior chamber lens implant, left eye. ANESTHESIA: Topical with MAC. DESCRIPTION OF PROCEDURE: The patient's dilating and anesthetic drops were applied in the holding room. A [place] balloon cuff was used for about 10 minutes. The patient was then brought to the operating room and positioned on the table and the left eye was prepped and draped in the usual sterile manner for an intraocular procedure. A lid speculum was placed between the eyelids and the operating microscope was brought into position. A paracentesis incision was made inferotemporally and lidocaine injected in the anterior chamber, followed by an injection of Viscoat. The primary 2.4 mm incision was then made temporally and a capsulorrhexis was then performed. The lens nucleus was hydrodissected and phacoemulsified. The cortical material was then aspirated with the I/A handpiece. The bag was insufflated with Provisc and a posterior chamber lens placed in the bag without difficulty. The Provisc was aspirated with the I/A handpiece. The eye was then pressurized and the wound checked for leaks and there were none. The speculum and drape were removed and Maxitrol ointment was instilled in the conjunctival sac and the eye was shielded. The patient was taken to recovery room in satisfactory condition. I will see him in several days in my office. JUDY/JAZLYN/[facility] [place]: Steven TID: [id number]
== END 2020-11-17 12:45 | disposition home or self-care (01) ==
LOC: SURG 09:15
PROVIDERS: ATTEND Ophthalmology
DX: E11.36 Type 2 diabetes mellitus with diabetic cataract (principal); H25.89 Other age-related cataract; I10 Essential (primary) hypertension; I25.10 Atherosclerotic heart disease of native coronary artery without angina pectoris; E78.00 Pure hypercholesterolemia, unspecified; F17.210 Nicotine dependence, cigarettes, uncomplicated; Z79.4 Long term (current) use of insulin; Z79.899 Other long term (current) drug therapy; Z98.890 Other specified postprocedural states
CPT/HCPCS: 66984; 82962; J0171; J2250; J3490; V2632